=== PATIENT | male | born 2000 | race Two or more races ===

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

== ENCOUNTER 2020-12-24 00:12 | Emergency (ER) | payer BC, MEDICAID ==
[~2020-12-24] VITALS: Ht 167.6 cm; Wt 68.0 kg
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
--- NOTE | 2020-12-24 01:00 | NUR ---
DR VELÁSQUEZ AT BEDSIDE
[2020-12-24] MEDS ORDERED: LIDOCAINE 0.5% HCL 50 ML VIAL ONE (01:04)
[2020-12-24 02:14] VITALS: BP 122/77
--- NOTE | 2020-12-24 02:16 | NUR ---
pateint discharged in stable condition instructions given
== END 2020-12-24 02:17 | disposition home or self-care (01) ==
LOC: ER 00:14
DX: S61.211A Laceration without foreign body of left index finger without damage to nail, initial encounter (principal); F90.9 Attention-deficit hyperactivity disorder, unspecified type; F17.200 Nicotine dependence, unspecified, uncomplicated; Z60.2 Problems related to living alone; Z79.899 Other long term (current) drug therapy; W26.0XXA Contact with knife, initial encounter; Y93.89 Activity, other specified; Y92.89 Other specified places as the place of occurrence of the external cause; Y99.8 Other external cause status
CPT/HCPCS: 12001; 99282; J3490

== ENCOUNTER 2024-10-26 00:05 | Emergency (ER) | payer SELFPAY ==
[~2024-10-26] VITALS: Ht 170.2 cm; Wt 86.2 kg
[2024-10-26 02:34] LABS: AMPHETAMINE, URINE NEGATIVE (NEGATIVE); BARBITURATE, URINE NEGATIVE (NEGATIVE); BENZODIAZEPINE, URINE NEGATIVE (NEGATIVE); COCCAINE, URINE NEGATIVE (NEGATIVE); OPIATE, URINE NEGATIVE (NEGATIVE)
[2024-10-26 02:43] LABS: CANNABINOID, URINE POSITIVE (NEGATIVE)
[2024-10-26 03:06] VITALS: BP 159/104; TEMP 98.9; O2SAT 97
== END 2024-10-26 03:06 | disposition home or self-care (01) ==
LOC: ER 00:15
DX: F19.10 Other psychoactive substance abuse, uncomplicated (principal); F17.200 Nicotine dependence, unspecified, uncomplicated; R42 Dizziness and giddiness; F90.9 Attention-deficit hyperactivity disorder, unspecified type; Z60.2 Problems related to living alone; Z79.899 Other long term (current) drug therapy